=== PATIENT | female | born 1975 ===

== ENCOUNTER 2020-03-02 09:14 | Outpatient (CLI) | payer BC ==
[2020-03-02] MEDS ORDERED: Iopamidol 370 76% 100 ML VIAL ONE (12:17)
[2020-03-02] MEDS ORDERED: Iopamidol 370 76% 50 ML VIAL FS ONE (12:17)
--- NOTE | 2020-03-02 12:46 | NM ---
Nuclear medicine parathyroid SPECT and scintigraphy: DATE: 03/02/2020 HISTORY: 44-year-old Female with hyperparathyroidism with hypercalcemia TECHNIQUE: IV injection of 27.3 mCi [id number] sestamibi. 3 view scintigraphic images of upper chest, neck, and head, immediately, at one hour, and 2 hours. SPECT in 3 planes from upper chest to skull base. Noncontrast CT from upper chest to skull base. SPECT-CT fusion. FINDINGS: There is intensely high uptake, on the intermediate scintigraphic images, 1 hour delayed images, and 2 hour delayed images, within the mass that invaginates the posterior aspect of the lower pole of the right lobe of the thyroid gland. This increased uptake includes not only the enhancing solid ante rior small portion, but also involves the nonenhancing large, posterior, apparently cystic component, as seen on the CT with and without contrast performed earlier today. In comparison, the thyroid parenchyma has washout of activity on the one hour delayed images, with no residual activity on the SPECT images IMPRESSION: Positive for right-sided parathyroid adenoma
--- NOTE | 2020-03-02 12:52 | CT ---
CT NECK WITH AND WITHOUT CONTRAST: (Parathyroid protocol) DATE: 03/02/2020 HISTORY: [id number] with hyperparathyroidism and hypercalcemia. TECHNIQUE: Precontrast scan, 25 seconds postcontrast scan, and 65 second postcontrast scan, from several centime ters inferior to the candelaria to the skull base. Coronal and sagittal reconstructions. FINDINGS: Abutting the longus coli muscle from the upper T1 to upper T2 levels, broadly abutting the right side of the trachea, indenting the posterior aspect of the lower pole of the right lobe of the thyroid gland, and very close to the right lateral edge of the esophagus, there is an approximately 2.3 x 1.1 x 1.7 cm soft tissue density mass which apparently does not have intrinsic iodine. Although that is one of the features of a parathyroid adenoma, this mass does not exhibit the strong arterial phase enhancement expected for parathyroid adenoma. In fact, only a small anterior superior component of this mass, which measures approximately which measures approximately 2 x 0.5 x 0.5 cm, shows any enha ncement (relatively weak enhancement, not typical for parathyroid adenoma). The rest of this mass, does not appear to enhance (approximately 30-35 Hounsfield units on all 3 phases) cyst, and may repre sent a complex cystic component of the mass. Despite these atypical characteristics, the uptake on the sestamibi scan is strong, including in the cystic component. IMPRESSION: A good candidate for parathyroid adenoma: a 2.3 cm right paratracheal mass abutting the posterior asp ect of the lower pole of the right lobe of thyroid gland. Despite the nonfavorable CT characteristics, the high sestamibi avidity makes this very likely to be a parathyroid adenoma.
== END 2020-03-02 09:15 | disposition home or self-care (01) ==
LOC: NM 09:14
PROVIDERS: ATTEND Otolaryngology Plastic Surgery within the Head & Neck
DX: E83.52 Hypercalcemia (principal); D35.1 Benign neoplasm of parathyroid gland
CPT/HCPCS: 70492; 78072; A9500; Q9967